=== PATIENT | female | born 1950 | race Caucasian/White ===

== ENCOUNTER 2024-02-22 20:04 | Emergency (ER) | payer MEDICARE, OTHER, SELFPAY ==
[2024-02-22 20:06] VITALS: BP 150/78
--- NOTE | 2024-02-22 20:30 | ED.GENMED ---
History of Present Illness
General
Chief Complaint: Allergic Reaction
Source: patient
Exam Limitations: none
Time Seen by Provider: 02/22/24 20:25
Nursing documentation reviewed up to this point in time: agreed with
History of Present Illness
History of Present Illness:
73-year-old female with history of HTN, celiac, 40 years ago had an allergic reaction to a bee sting, presents stating she was stung by a bee on her right inner thigh about 30 minutes ago, her face immediately got flushed, she had a scratchy throat,
she felt hot and has noted welts forming underneath her left arm. She took Benadryl 50 mg. She denies chest pain or trouble breathing. Denies nausea or vomiting.
Past History
Past History
ED Past Medical History: HTN
ED Past Surgical History: Orthopedic
Social History
Tobacco: Non-smoker
Alcohol: Occasional
Personal:
Living: with family
Review of Systems
Review of Systems
Allergies reviewed?: Yes
All Other Systems: ROS reviewed and negative except as documented in HPI and ROS
Constitutional: Denies fever
EENT: Denies sore throat or mouth swelling
Respiratory: Denies cough or trouble breathing
Cardiac: Denies chest pain
ABD/GI: Denies abdominal pain or nausea
Musculoskeletal: Reports no symptoms
Skin: Reports other (Face reddened, welts left armpit)
Neurological: Reports no symptoms
Phy Exam
Physical Exam
Physical Exam:
GENERAL: No acute distress. A&Ox3.
CONSTITUTIONAL: Afebrile.
EYES: PERRL, conjunctivae normal
ENMT: moist mucus membranes, Pharynx nl
RESPIRATORY: Regular respirations, nonlabored, lungs clear.
CARDIOVASCULAR: Regular rate and rhythm, no murmurs, no rubs.
GI: Soft, nontender, normal BS
MUSCULOSKELETAL: Moves with ease. Well perfused.
SKIN: Warm, dry, face is flushed, chest wall is flushed, large welts noted left axillary area, right inner thigh with area of erythema at site of sting
PSYCH: Normal mood and affect. Well kept, interactive and appropriate
NEUROLOGIC: Awake, alert and oriented. No focal neurological deficits
Course
Orders/Labs/Results
Orders:
Orders
02/22/24 20:28
Dexamethasone Sod Phosphate [Decadron] 10 mg IV NOW STA
02/22/24 20:29
EPINEPHrine PF [Adrenalin] 0.3 mg IM NOW STA
Vital Signs
Initial and Last Documented VS:
Initial Vital Signs
Temp Pulse Resp BP Pulse Ox
98.9 F 90 24 150/78 95
02/22/24 20:06 02/22/24 20:06 02/22/24 20:06 02/22/24 20:06 02/22/24 20:06
Last Documented Vital Signs
Temp Pulse Resp BP Pulse Ox
98.9 F 76 19 130/67 94
02/22/24 20:06 02/22/24 22:00 02/22/24 22:00 02/22/24 22:00 02/22/24 22:00
MDM/Problems Addressed
Differential Diagnosis Includes:
Allergic reaction, anaphylaxis
MDM/Problems Addressed:
73-year-old female with history of HTN, celiac, 40 years ago had an allergic reaction to a bee sting, presents stating she was stung by a bee on her right inner thigh about 30 minutes ago, her face immediately got flushed, she had a scratchy throat,
she felt hot and has noted welts forming underneath her left arm. She took Benadryl 50 mg. She denies chest pain or trouble breathing. Denies nausea or vomiting.
21:20
After medications feeling much better.
Stable for discharge
*Critical Care Note
Total Time (30-74mins, 75-104mins- exclusive of procedures): Not Applicable
ED Attending Note
-
Portions of this chart may have been created with voice recognition software.� Occasional wrong word or��sound alike� substitutions may have occurred due to the inherent limitations of voice recognition software.
Discharge Plan
Departure
Patient Disposition: Home (Routine Discharge)
Date of Disposition: 02/22/24
Time of Disposition: 21:38
Patient with high blood pressure during this ER visit?: No
Condition: Good
Discharge Problem:
Bee sting, Allergic reaction
Instructions: Allergic Reaction ED, Insect Bites and Stings ED
Prescriptions:
New
epinephrine [EpiPen 2-Nitish] 0.3 mg/0.3 mL auto-injector
0.3 mg IM ONCE PRN (Reason: anaphylaxis) Qty: 2 0RF
Referrals:
Lolita Gary, DO [Family Provider] -
Activity Restrictions/Additional Instructions:
As we discussed, I sent a prescription to your pharmacy for EpiPen, keep 1 with you and 1 at home
You may continue Benadryl 50 mg every 6 hours as needed for itching or swelling.
Interventions
Interventions:
*Risk Screen - Suicide Last Done: 02/22/24 20:06
*General Assessment Last Done: 02/22/24 20:27
*Neglect/Abuse Screening Last Done: 02/22/24 20:06
*Nursing Disposition Last Done: 02/22/24 22:59
ED- Cardiac Assessment Last Done: 02/22/24 20:27
ED- Pulmonary Assessment Last Done: 02/22/24 20:27
ED-Skin Assessment Last Done: 02/22/24 20:27
Discharge Date and Time
Discharge Date/Time: 02/22/24 22:59
Print Language: ALBAN[place]
[2024-02-22] MEDS: DECADRON 10 MG IV (20:35)
[2024-02-22] MEDS: ADRENALIN 0.299999999999999989 MG IM (20:36)
[2024-02-22 20:50] VITALS: BP 116/51
[2024-02-22 21:00] VITALS: BP 114/47
[2024-02-22 22:00] VITALS: BP 130/67
== END 2024-02-22 22:59 | disposition home or self-care (01) ==
LOC: EMR 20:04
PROVIDERS: EMERGENCY PHYSICIAN Emergency Medicine; FAMILY PHYSICIAN Family Medicine
DX: T63.441A Toxic effect of venom of bees, accidental (unintentional), initial encounter (principal); I10 Essential (primary) hypertension
CPT/HCPCS: 99284; 96374; 96372

== ENCOUNTER → 2024-08-27 17:42 | Outpatient (REF) | payer MEDICARE, OTHER, SELFPAY | LOC: WDC 17:42 | PROVIDERS: ATTENDING PHYSICIAN Family Medicine | DX: Z12.31 Encounter for screening mammogram for malignant neoplasm of breast (principal) | CPT/HCPCS: 77063; 77067 ==